=== PATIENT | male | born 1995 | race Caucasian/White ===

== ENCOUNTER 2021-01-09 23:03 | Emergency (ER) | payer OTHER ==
[2021-01-09] MEDS ORDERED: DEXAMETHASONE 10 MG/ML VIAL PO STA (23:50)
[2021-01-09] MEDS ORDERED: AMOX/CLAV 875 MG/125 MG TABLET PO STA (23:50)
[2021-01-09] MEDS ORDERED: CHERRY SYRUP 10 ML UDC PO ONE (23:50)
--- NOTE | 2021-01-09 23:58 | ED Physician Documentation ---
History of Present Illness - Stated complaint Stated Complaint: LIGHT HEADED, THROAT/FACE SWELLING - Chief complaint Chief Complaint: Allergic Rx - History obtained from History obtained from: Patient, Family - History of Present Illness Timing: Today - Additonal information Additional information: Previously well 25-year-old male awoke this morning feeling fine when he was shaving he cut himself on the left side of his neck. He placed a small waterproof Band-Aid on that and during the time he was at work this began to leak around there and he switched the Band-Aid out a number of times and when it came off again and he drenched is clothes with blood he put a larger Band-Aid over the top of it and it began to sting. He believes the Band-Aids he was us ing or latex free. When the patient went to go to bed this evening he began to feel that he was having some swelling in the back of his throat and he felt that he was having a reaction to this Band-Aid with the amount of redness was present over the area where he had the septic consult on this and he is no longer wearing a Band-Aid he took some Benadryl. When he continued to have symptoms of fullness in his throat he decided to come to the hospital. He has not been ill recently he does not feel that he has had any more of a cough that he usually has with smoking and he denies any postnasal drainage. Review of Systems Constitutional: denies: Fever Eyes: denies: Decreased vision Ears: denies: Ear pain Nose: denies: Rhinorrhea / runny nose, Congestion Throat: reports: Sore throat, Other (sensation of throat swelling). denies: Dental pain / toothache, Oral lesions / sores Cardiac: denies: Chest pain / pressure Respiratory: reports: Cough (smokers cough not changed). denies: Dyspnea GI: denies: Abdominal Pain, Nausea, Vomiting : denies: Dysuria Skin: reports: Rash (redness to area of the neck where the bandaide was.), Abrasion (s) Musculoskeletal: denies: Neck pain, Back pain, Extremity pain Neurologic: denies: Generalized weakness, Focal weakness, Numbness PD PAST MEDICAL HISTORY - Present Medications Home Medications: Ambulatory Orders Medication Instructions Recorded Confirmed diphenhydrAMINE [Benadryl] 50 mg PO ONCE 01/09/21 01/09/21 Amox/Clav 875/125 [Augmentin] 1 each PO Q12H #20 tablet 01/10/21 - Allergies Allergies/Adverse Reactions: Allergies Allergy/AdvReac Type Severity Reaction Status Date / Time mold Allergy Unknown Verified 01/09/21 23:29 Pets Allergy Unknown Uncoded 01/09/21 23:29 PD ED PE NORMAL - Vitals Vital signs reviewed: Yes (hypertensive ) - General General: Alert and oriented X 3, Well developed/nourished, Other (appears anxious ) - HEENT HEENT: Atraumatic, PERRL, EOMI, Other (The right TM is clear the left is densely erythematous anteriorly with distortion of the umbo.) - Neck Neck: Supple, no meningeal sign, No bony TTP, Other (To the left side of the neck there is an area 4 cm x 2 cm of erythema with a central area that is abraded no longer bleeding.) - Cardiac Cardiac: RRR, No murmur - Respiratory Respiratory: No respiratory distress, Clear bilaterally - Abdomen Abdomen: Soft, Non tender - Back Back: No CVA TTP, No spinal TTP - Derm Derm: Normal color, Warm and dry, Other (erythema in bandaid pattern without blanching ) - Extremities Extremities: No deformity, No edema - Neuro Neuro: Alert and oriented X 3, 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, No motor deficit, No sensory deficit, Normal speech Eye Opening: Spontaneous Motor: Obeys Commands Verbal: Oriented GCS Score: 15 - Psych Psych: Normal mood, Normal affect Results - Vitals Vitals: Vital Signs - 24 hr 01/09/21 01/09/21 01/10/21 23:30 23:37 00:02 Temperature 36.6 C 36.6 C Heart Rate 90 110 H 79 Respiratory 15 14 Rate Blood Pressure 150/90 H 150/90 H 125/110 H O2 Saturation 98 90 L 97 01/10/21 01/10/21 01/10/21 00:06 00:30 01:00 Temperature Heart Rate 85 63 66 Respiratory 17 20 20 Rate Blood Pressure 137/83 H 132/83 H 148/81 H O2 Saturation 97 97 96 01/10/21 01:05 Temperature Heart Rate 72 Respiratory 17 Rate Blood Pressure 148/81 H O2 Saturation 96 Oxygen O2 Source Room air PD MEDICAL DECISION MAKING - ED course Complexity details: re-evaluated patient, considered differential, d/w patient ED course: 25-year-old male with some redness and stinging to the side of his face where he had a Band-Aid placed earlier in the day now has sensation of swelling in the back of his throat and on examination we find marked erythema to the left TM. The pharynx shows only mild edema to the uvula. No significant erythema. He is administered dexamethasone 10 mg orally as well as Augmentin. Departure - Departure Disposition: 01 Home, Self Care Clinical Impression: Skin irritation Angio-edema Qualifiers: Encounter type: initial encounter Qualified Code(s): T78.3XXA - Angioneurotic edema, initial encounter Otitis media Qualifiers: Otitis media type: suppurative Chronicity: acute Laterality: left Recurrence: non-recurrent Spontaneous tympanic membrane rupture: without spontaneous rupture Qualified Code(s): H66.002 - Acute suppurative otitis media without spontaneous rupture of ear drum, left ear Condition: Stable Instructions: ED Dermatitis Contact, ED Otitis Media Acute Adult, ED Uvulitis Follow-Up: [id number] [Provider Group] Prescriptions: Amox/Clav 875/125 [Augmentin] 1 each PO Q12H #20 tablet Discharge Date/Time: 01/10/21 01:06
[2021-01-10 01:06] VITALS: BP 148/81
== END 2021-01-10 01:06 | disposition home or self-care (01) ==
LOC: ED 23:03
DX: T78.3XXA Angioneurotic edema, initial encounter (principal); H66.002 Acute suppurative otitis media without spontaneous rupture of ear drum, left ear
CPT/HCPCS: 99282; 99284; A9270